=== PATIENT | male | born 1985 | race Caucasian/White ===

== ENCOUNTER → 2018-12-06 | Outpatient (REF) | payer MEDICARE, MEDICAID ==
[2018-12-06 17:39] LABS: INFLUENZA A AMPLIFICATION NEGATIVE (NEGATIVE); INFLUENZA B AMPLIFICATION NEGATIVE (NEGATIVE)
== END ==
LOC: M LAB REF 16:24
PROVIDERS: ATTEND Physician Assistant
DX: J11.1 Influenza due to unidentified influenza virus with other respiratory manifestations (principal)

== ENCOUNTER 2019-08-29 20:05 | Emergency (ER) | payer MEDICARE, MEDICAID ==
[~2019-08-29] VITALS: Ht 182.9 cm; Wt 80.5 kg
[2019-08-29] MEDS ORDERED: METH27TA5 (20:15)
[2019-08-29 22:10] LABS: BASO % 0.2 % (0.0-1.0); HEMATOCRIT 41.7 % (42.0-52.0); HEMOGLOBIN 14.6 g/dl (13.5-17.5); LYMPH # 0.8 10^3/uL (1.5-5.0); LYMPH % 5.1 % (24.0-44.0); MEAN CORPUSCULAR HEMOGLOBIN 31.7 pg (27.0-33.0); MEAN CORPUSCULAR VOLUME 90.7 fl (80.0-96.0); MONO # 1.1 10^3/uL (0.0-0.8); MONO % 6.8 % (0.0-5.0); NEUTROPHILS # 14.2 10^3/uL (1.5-8.5); NEUTROPHILS % 87.5 % (36.0-66.0); PLATELET COUNT, AUTOMATED 183 10^3/uL (150-450); WHITE BLOOD COUNT 16.2 10^3/uL (4.0-10.0)
[2019-08-29] MEDS ORDERED: IBUPROFEN 100 MG/5 ML SUSP UDC DYE FREE PO ONE (22:15)
[2019-08-29 22:29] LABS: INFLUENZA A AMPLIFICATION NEGATIVE (NEGATIVE); INFLUENZA B AMPLIFICATION NEGATIVE (NEGATIVE)
[2019-08-29 22:44] LABS: MONO REFLEX EBV COMP NEGATIVE (NEGATIVE)
[2019-08-29] MEDS ORDERED: AMOX500C PO (22:58)
[2019-08-29] MEDS ORDERED: MAGIC MOUTHWASH SUSPENSION BTL SS STA (22:59)
[2019-08-29] MEDS ORDERED: PRED20TA PO (23:07)
[2019-08-29] MEDS ORDERED: AMOXICILLIN 500 MG CAP PO ONE (23:15)
[2019-08-29 23:29] VITALS: BP 138/74
--- NOTE | 2019-08-30 08:10 | REP ---
Two-view chest: 08/29/2019. Indication: Dyspnea. Febrile. Comparison: None. Findings: The lungs are clear. There is no significant pleural effusion or pneumothorax. Cardiac silhouette is normal. Mediastinum is unremarkable. Impression: No acute cardiopulmonary process. Electronically Signed by Osmani Esteban DO 08/30/2019 08:02 A
[2019-09-01 00:07] LABS: EBV VIRAL CAPSID AG IgM <36.0 U/mL (0.0-35.9)
== END 2019-08-29 23:31 | disposition home or self-care (01) ==
LOC: M ED 20:05
DX: J02.9 Acute pharyngitis, unspecified (principal); J03.90 Acute tonsillitis, unspecified; J35.1 Hypertrophy of tonsils; R13.10 Dysphagia, unspecified; R50.9 Fever, unspecified; R07.0 Pain in throat; D72.829 Elevated white blood cell count, unspecified; F90.9 Attention-deficit hyperactivity disorder, unspecified type; Z79.899 Other long term (current) drug therapy; Z88.1 Allergy status to other antibiotic agents

== ENCOUNTER → 2021-09-03 | Outpatient (REF) | payer MEDICARE ==
[~2021-09-03] MED LIST: AMOX500C PO; METH27TA5; PRED20TA PO
== END ==
LOC: M LAB REF 21:16
PROVIDERS: ATTEND Physician Assistant
DX: J03.90 Acute tonsillitis, unspecified (principal)

== ENCOUNTER 2022-01-12 21:50 | Emergency (ER) | payer MEDICARE, MEDICAID ==
[~2022-01-12] VITALS: Ht 182.9 cm; Wt 79.5 kg
[2022-01-12 21:57] VITALS: BP 139/77
== END 2022-01-12 23:11 | disposition home or self-care (01) ==
LOC: M ED 21:50
DX: R10.9 Unspecified abdominal pain (principal); V40.0XXA Car driver injured in collision with pedestrian or animal in nontraffic accident, initial encounter; F90.9 Attention-deficit hyperactivity disorder, unspecified type; F17.200 Nicotine dependence, unspecified, uncomplicated; Z88.2 Allergy status to sulfonamides; Z88.8 Allergy status to other drugs, medicaments and biological substances; Y92.9 Unspecified place or not applicable; Y93.9 Activity, unspecified; Y99.9 Unspecified external cause status

== ENCOUNTER 2023-04-16 16:41 | Emergency (ER) | payer MEDICARE, MEDICAID ==
[~2023-04-16] VITALS: Ht 182.9 cm; Wt 76.8 kg
[2023-04-16] MEDS ORDERED: ONDANSETRON 4MG ORAL DISINTEGRATING TAB PO ONE (17:30)
[2023-04-16 18:10] LABS: BASO % 0.3 % (0.0-1.0); EOS % 0.1 % (0.0-3.0); HEMATOCRIT 44.3 % (42.0-52.0); LYMPH # 0.4 10^3/uL (1.5-5.0); LYMPH % 4.3 % (24.0-44.0); MEAN CORPUSCULAR HEMOGLOBIN 30.9 pg (27.0-33.0); MEAN CORPUSCULAR HGB CONC 34.1 g/dl (32.0-36.5); MEAN CORPUSCULAR VOLUME 90.8 fl (80.0-96.0); MONO # 0.3 10^3/uL (0.0-0.8); MONO % 3.2 % (2.0-8.0); NEUTROPHILS # 9.3 10^3/uL (1.5-8.5); NEUTROPHILS % 91.8 % (36.0-66.0); PLATELET COUNT, AUTOMATED 172 10^3/uL (150-450); RED BLOOD COUNT 4.88 10^6/uL (4.30-6.10); WHITE BLOOD COUNT 10.2 10^3/uL (4.0-10.0)
[2023-04-16 18:20] LABS: INR 0.94; PROTHROMBIN TIME 12.8 SECONDS (12.5-14.5)
[2023-04-16 18:24] LABS: HEMOGLOBIN 15.1 g/dl (13.5-17.5)
[2023-04-16 18:30] LABS: CK-MB VALUE MASS < 1.0 NG/ML (<3.6); ETHYL ALCOHOL (ETHANOL) < 0.003 % (0.000-0.010)
[2023-04-16 18:32] LABS: BLOOD UREA NITROGEN 18 MG/DL (9-23); CALCIUM LEVEL 8.6 MG/DL (8.5-10.1); CARBON DIOXIDE LEVEL 29 MMOL/L (20-31); CHLORIDE LEVEL 103 MMOL/L (98-107); CREATININE FOR GFR 1.09 MG/DL (0.70-1.30); GLOMERULAR FILTRATION RATE > 60.0 (>60); GLUCOSE, FASTING 97 MG/DL (60-100); MAGNESIUM LEVEL 1.7 MG/DL (1.8-2.4); POTASSIUM SERUM 4.3 MMOL/L (3.5-5.1); SODIUM LEVEL 139 MMOL/L (136-145)
[2023-04-16 18:34] LABS: THYROID STIMULATING HORMONE 0.404 uIU/ML (0.55-4.78)
[2023-04-16 18:37] LABS: CPK CREATINE PHOSPHOKINASE 65 U/L (46-171); MB/CK RELATIVE INDEX 1.53 (< OR =4)
[2023-04-16] MEDS ORDERED: ONDA-83 PO (18:54)
[2023-04-16 19:26] VITALS: BP 113/62
== END 2023-04-16 19:23 | disposition home or self-care (01) ==
LOC: M ED 16:41
DX: S06.0X0A Concussion without loss of consciousness, initial encounter (principal); R55 Syncope and collapse; I45.19 Other right bundle-branch block; F90.9 Attention-deficit hyperactivity disorder, unspecified type; Z88.2 Allergy status to sulfonamides; Z79.83 Long term (current) use of bisphosphonates; Z79.899 Other long term (current) drug therapy

== ENCOUNTER → 2023-04-19 | Outpatient (REF) | payer MEDICARE, MEDICAID ==
[~2023-04-19] MED LIST changes: +ONDA-83 PO
== END ==
LOC: M LAB REF 16:09
PROVIDERS: ATTEND Physician Assistant Medical
DX: R50.9 Fever, unspecified (principal); M79.10 Myalgia, unspecified site